=== PATIENT | male | born 1995 | race Caucasian/White ===

== ENCOUNTER 2021-07-31 14:20 | Emergency (ER) | payer SELFPAY ==
[2021-07-31 14:21] VITALS: BP 177/107; PULSE 119; RESP 16; TEMP 36; BMI 26.6
--- NOTE | 2021-07-31 14:30 | ED.VIS.DENTA ---
HPI History of Present Illness Chief Complaint: Dental Informant: patient Onset/Context/Timing Onset: Yesterday Context: Gradual Onset Current Severity: Moderate Maximum Severity: Moderate Associated Symptoms Assocated Symptom - Dental: jaw swelling Narrative Narrative: Patient presents secondary to left-sided dental pain. He reports several years ago breaking off his tooth at the gumline. Last evening it was mildly sore but easily treated with ibuprofen. As the day has progressed today he has had increased pain and some mild jaw swelling. He does report history of drug abuse and states he has been clean for the last 8 years. He is requesting no narcotics. PFSH PFS Medical History no medical history no medical history Home Medications clindamycin HCl 300 mg PO 4X/DAY #80 cap 07/31/21 [Rx Last Taken Unknown] naproxen [Naprosyn] 500 mg PO BID PRN #20 tab 07/31/21 [Rx Last Taken Unknown] Allergy/AdvReac Type Severity Reaction Status Date / Time erythromycin base Allergy Other Verified 07/31/21 14:22 Penicillins Allergy Other Verified 07/31/21 14:22 ROS ROS ED Constitutional Constitutional ED: Denies chills or fever(s) Eyes Eyes: Denies blurry vision or change in vision ENT ENT ED: Reports other Details: Left mandibular dental pain ; Denies ear pain Cardiovascular Cardiovascular: Denies chest pain Respiratory/Chest Respiratory/Chest: Denies cough or dyspnea Gastrointestinal Gastrointestinal: Denies abdominal pain Genitourinary Genitourinary ED: Denies dysuria Integumentary Denies rash Neurologic Neurologic: Denies headache(s) Hematologic/Lymphatic Hematologic/Lymphatic: Denies easy bleeding or easy bruising Allergic/Immunologic Allergic/Immunologic ED: Denies urticaria EXAM Physical Exam Const Vital Signs: 07/31/21 14:21 Temperature 96.8 F L Temperature Source Temporal Pulse Rate 119 H Respiratory Rate 16 Blood Pressure 177/107 H Blood Pressure Mean 130 Positive well nourished HEENT HEENT Narrative: Swollen gums at the left mandibular first premolar. No submandibular fullness. No evidence of Shaw's angina. Posterior pharynx examination unremarkable. Mild edema noted over the left mandible. No skin changes or erythema. Eyes PERRL and EOMs intact bilaterally Neck supple Lymph Lymphatic: no lymphadenopathy noted Chest Wall inspection of chest normal and palpation of chest normal Resp normal respiratory effort and clear to auscultation bilaterally Cardio regular rate and regular rhythm GI non-tender Palpation: soft Neuro oriented x3 Sensorium / Orientation: alert Psych mental status grossly normal Skin no rashes or lesions noted MDM [facility] Treatment and Re-Evaluation Comments:: Patient will be given naproxen and clindamycin. Viscous lidocaine was used topically to help with pain control. Prescription for naproxen and clindamycin will be sent to the pharmacy for him. There is a dental clinic in [place] that he is planning to follow-up with. Discharge Plan Triage Chief Complaint: Dental ED Provider: Ashlee Cunningham Dx/Rx/DC Orders Clinical Impression: Odontalgia Instructions: ED Dental Pain Prescriptions: New naproxen [Naprosyn] 500 mg tablet 500 mg PO BID PRN (Reason: pain) Qty: 20 RF: 0 clindamycin HCl 150 mg capsule 300 mg PO 4X/DAY Qty: 80 RF: 0 Disposition Disposition: Home, Self Care
[2021-07-31] MEDS: Naproxen 500 MG Tablet PO (14:47)
[2021-07-31] MEDS: Clindamycin HCl 150 MG Capsule 300 MG PO (14:47)
== END 2021-07-31 14:54 | disposition home or self-care (01) ==
LOC: ED 14:53
PROVIDERS: Emergency Provider Emergency Medicine; Visit Provider Emergency Medicine
DX: K08.89 Other specified disorders of teeth and supporting structures (principal)
CPT/HCPCS: 99283